=== PATIENT | male | born 1975 | race African-American/Black ===

== ENCOUNTER 2022-01-03 12:30 | Emergency (ER) | payer SELFPAY ==
[~2022-01-03] VITALS: Ht 172.7 cm; Wt 73.0 kg
[2022-01-03 18:27] LABS: BASOPHILS % 0.2 % (0.0-2.0); EOSINOPHILS % 0.8 % (0.0-5.0); HEMATOCRIT. 43.2 % (42.0-52.0); HEMOGLOBIN. 14.5 g/dL (14.0-18.0); LYMPHOCYTES % 22.4 % (20.0-50.0); MEAN CORPUSCULAR HEMOGLOBIN 30.5 pg (28.0-32.0); MEAN CORPUSCULAR VOLUME 90.7 fL (80.0-94.0); MEAN PLATELET VOLUME 8.7 fl (7.4-10.4); MONOCYTES % 6.6 % (2.0-8.0); PLATELET 228 x1000/uL (130-400); RED BLOOD CELL COUNT 4.77 mill/uL (4.7-6.1); RED CELL DISTRIBUTION WIDTH 12.6 % (11.6-14.6)
[2022-01-03 18:28] LABS: CLARITY URINE CLEAR (CLEAR); COLOR URINE DARK YELLOW (YELLOW); KETONES URINE 2+ (NEGATIVE); LEUKOCYTE ESTERASE URINE NEGATIVE (NEGATIVE); NITRITE URINE NEGATIVE (NEGATIVE); OCCULT BLOOD URINE NEGATIVE (NEGATIVE); PROTEIN URINE TRACE (NEGATIVE); SPECIFIC GRAVITY URINE 1.035 (1.005-1.030)
[2022-01-03 18:36] LABS: CHLORIDE 111 mEq/L (98-107)
[2022-01-03 18:41] LABS: ETHANOL BLOOD < 10 mg/dL
[2022-01-03 19:01] LABS: *AMPHETAMINES SCREEN URINE PRESUMTIVE POSITIVE (NEGATIVE); *BARBITURATES SCREEN URINE NEGATIVE (NEGATIVE); *BENZODIAZEPINES SCREEN URINE NEGATIVE (NEGATIVE); *COCAINE SCREEN URINE NEGATIVE (NEGATIVE); CANNABINOID URINE SCREEN PRESUMTIVE POSITIVE (NEGATIVE); METHADONE URINE SCREEN NEGATIVE (NEGATIVE); OPIATES URINE SCREEN NEGATIVE (NEGATIVE); PHENCYCLIDINE URINE SCREEN NEGATIVE (NEGATIVE)
[2022-01-03 19:30] VITALS: BP 136/88
[2022-01-03] MEDS ORDERED: OLANZAPINE 5MG TABLET ODT PO ONE (21:30)
== END 2022-01-04 09:03 | disposition left against medical advice (07) ==
LOC: ER 12:30
DX: F15.121 Other stimulant abuse with intoxication delirium (principal); F16.121 Hallucinogen abuse with intoxication with delirium; F12.121 Cannabis abuse with intoxication delirium; R45.1 Restlessness and agitation; F31.9 Bipolar disorder, unspecified
CPT/HCPCS: 36415; 80053; 80305; 80307; 80320; 80329; 81003; 85025; 99283; G0480

== ENCOUNTER 2022-06-02 04:42 | Emergency (ER) | payer SELFPAY ==
[~2022-06-02] VITALS: Ht 175.3 cm; Wt 75.0 kg
[2022-06-02 04:53] VITALS: BP 110/57
[2022-06-02] MEDS ORDERED: OXYCODONE HCL/ACETAMINOPHEN 5/325MG TABLET PO ONE (06:15)
[2022-06-02] MEDS ORDERED: IBUPROFEN 800MG TABLET PO ONE (06:15)
== END 2022-06-02 10:35 | disposition home or self-care (01) ==
LOC: ER 04:42
DX: K08.89 Other specified disorders of teeth and supporting structures (principal); K08.409 Partial loss of teeth, unspecified cause, unspecified class
CPT/HCPCS: 99283